=== PATIENT | female | born 1940 | race Caucasian/White ===

== ENCOUNTER → 2017-11-01 | Outpatient (CLI) | payer OTHER ==
[~2017-11-01] MED LIST: AMLO5TAB7 PO; ASPI-482 PO; ATOR40TA59 PO; CHOL10003 PO; EQUATE ARTHRITIS; FENO134C PO; HYDR-2869 PO; LOSA100T7 PO; MAGN400C PO; METO100T7 PO; MONT10TA6 PO; OMEG-113 PO; PANT40TA5 PO; SPIR25TA5 PO
--- NOTE | 2017-11-01 11:46 | KCIC ---
MRI Lumbar Spine without contrast History: Low back pain, radiculopathy, previous surgery 2015 Technique: Multiplanar, multi sequential noncontrast MR imaging was performed of the lumbar spine. Contrast: None Comparison: None Findings: Lumbar vertebral body stature is preserved. There is minimal grade 1 posterior subluxation L2 relative L3 and negligible anterior spondylolisthesis L4-5. Other than Schmorl's nodes, lumbar vertebral body stature is preserved. Conus terminates at L1-2. There is nonspecific edema posterior subcutaneous fat of the lower back. There is mild L5-S1 endplate edema. There is moderate to severe degenerative disc disease greatest at L5-S1 and to a somewhat lesser degree at L4-5 and L2-3, mild to moderate degenerative disc disease at L3-4. L1-L2: This level was not included on the axial images. There is buckling of the ligamentum flavum. Spinal canal and neural foramina are adequate. L2-L3: There is moderate to severe facet degenerative change. There likely has been central posterior decompression. There is disc osteophyte complex and bulge superimposed on the posteriorly subluxed L2 vertebral body margin. There is overall mild narrowing of the far lateral recesses greater on the left. There is probable small synovial cyst in the far right lateral recess about 4 mm in size. There is [id number] narrowing of the left neural foramen, right neural foramen overall adequate. L3-L4: There is mild buckling of the ligamentum flavum and facet hypertrophic change. There is disc osteophyte complex and bulge. There is overall mild spinal stenosis with lateral recess stenosis greater on the left. There is mild right and fairly severe left neural foramina compromise, contact exiting left L3 nerve root. Narrowing of the left neural foramen is due to disc osteophyte complex and facet degenerative change, also tiny synovial cyst at the dorsal superior margin of the neural foramen about 1 to 2 mm in size. L4-L5: There is mild facet degenerative change. There is broad posterior bulge. Spinal canal is overall adequate. There is moderate to severe right and [id number] left neural foramina compromise. L5-S1: There is mild buckling of the ligamentum flavum. There is shallow posterior broad protrusion which is probable partially calcified. This is near the descending S1 nerve roots without significant displacement or significant spinal stenosis. There is moderate to severe right and moderate left neural foramina compromise, contact posterior surfaces of the exiting L5 nerve roots greater on the right. Impression: 1. There is mild lateral recess stenosis greater on the left at L2-3, also mild spinal stenosis with lateral recess stenosis greater on the left at L3-4. Shallow broad posterior protrusion which is probably partially calcified at L5-S1 is near the descending S1 nerve roots without significant spinal stenosis. 2. There is neural foramina compromise as stated, more significant narrowing on the left at L3-4, also moderate to severe narrowing on the right at L4-5 and L5-S1 and to a lesser degree on the left at L4-5 and L5-S1. 3. There is mild abnormal alignment as stated, multilevel facet degenerative change. 4. There is degenerative disc disease greatest at L5-S1, to lesser degree at L2-3 and L4-5. Electronically signed by: Walter Busby MD (11/01/2017 11:43 AM) [facility] [place]
== END | disposition home or self-care (01) ==
LOC: KCIC MRI 10:37
PROVIDERS: ATTEND Physician Assistant Surgical
DX: M51.37 Other intervertebral disc degeneration, lumbosacral region (principal); M48.061 Spinal stenosis, lumbar region without neurogenic claudication; M47.896 Other spondylosis, lumbar region; M25.78 Osteophyte, vertebrae; Z90.711 Acquired absence of uterus with remaining cervical stump
CPT/HCPCS: 72148

== ENCOUNTER → 2017-11-15 | Outpatient (CLI) | payer OTHER ==
--- NOTE | 2017-11-15 15:47 | KCIC ---
EXAM: Dual energy x-ray absorptiometry (DEXA). HISTORY: Postmenopausal female presents for osteoporosis screening. COMPARISON: None. TECHNIQUE: Dual energy x-ray absorptiometry of the lumbar spine and left hip was performed. Calculation of bone mineral density based on standard deviations above or below the expected young adult normal value (T-score) was completed. FINDINGS: The average bone mineral density in the 1st through 4th lumbar vertebrae is 1.332 g/cmxcm, corresponding with a T-score of 2.6. The average total bone mineral density in the left hip is 0.873 g/cmxcm, corresponding with a T-score of -0.6. IMPRESSION: Normal bone mineral density. Note: Definitions established by the World Health Organization: 1. Normal: T-score is -1.0 or above. 2. Osteopenia: T-score is between -1.0 and -2.5 . 3. Osteoporosis: T-score is -2.5 or below. Electronically signed by: Antonina Lou MD (11/15/2017 3:43 PM) [place] [id number]
== END | disposition home or self-care (01) ==
LOC: KCIC DEXA 14:00
PROVIDERS: ATTEND Physician Assistant Surgical
DX: Z13.820 Encounter for screening for osteoporosis (principal); E11.9 Type 2 diabetes mellitus without complications; R29.890 Loss of height; Z78.0 Asymptomatic menopausal state
CPT/HCPCS: 77080

== ENCOUNTER → 2017-11-29 | Outpatient (CLI) | payer OTHER ==
[~2017-11-29] MED LIST changes: +CALC600T4 PO; +CRAN1TAB5 PO; +GABA-586 PO; +LINA5TAB4 PO; +MECL12.52 PO; +POTA20TA82 PO
--- NOTE | 2017-11-30 00:25 | PAIN ---
DATE OF SERVICE: 11/29/2017 DIAGNOSES: Lumbar radiculopathy with lumbar degenerative disk disease and post-lumbar laminectomy syndrome. HISTORY OF PRESENT ILLNESS: The patient is a 77-year-old female, returns for followup status post lumbar epidural steroid injections, last seen in 04/2015. The patient reports she has had decompressive lumbar laminectomy later that year at [facility] and the pain has been increased in her back now for about the past 7-8 months. The patient reports it is in the low back, bilateral lower extremities, worse on the right than the left, radiating in the posterior lateral thigh, lateral anterior thigh, medial knee on the right side as well as in the hips bilaterally and somewhat in the posterior thighs bilaterally. The patient reports it is stabbing, aching, unbearable at times, worse with walking, standing, changing positions, better with sitting, but awakens her from sleep about every 4 hours. The patient states she can usually reposition. Especially, when she is lying on her right side, it is worse. The patient reports no new motor or sensory deficits, no new bowel or bladder incontinence. Describes the pain as a 10 on a scale 10 at its worst, 8 on average, a 5 at its least and is an 8 today. The patient reports stabbing and burning, radiating into the lower extremities, again worse on the right than the left, but better with sitting or lying down. The patient did have a new MRI scan dated 11/01/2017 showing mild lateral recess stenosis greater on the left at L2-L3 and mild lateral recess stenosis greater on the left at L3-L4, shallow broad posterior protrusion, partially calcified L5-S1 to descending S1 nerve roots, neural foraminal compromise more significant on the left at L3-L4, [id number]-[id number] narrowing on the right at L4-L5 and L5-S1, to a lesser degree on the left at L4-L5 and L5-S1. The patient reports no loss of motor function with significant fatigability with the low back pain and especially in the right lower extremity. PHYSICAL EXAMINATION: VITAL SIGNS: Today, the patient's blood pressure is 141/54, pulse 63, respirations are 18, temperature is 98.6 degrees Fahrenheit, height is 5 feet 1 inch, weighs 149 pounds. GENERAL: The patient is awake, alert, oriented, appropriate, very pleasant demeanor. HEENT: Shows normocephalic, atraumatic. Extraocular movements are intact and symmetrical. Oral cavity: Mucous membranes moist and pink. Dentition is intact. NECK: Shows anterior throat supple without palpable lymphadenopathy noted. Swallow reflex is symmetrical. CHEST: Shows normal on inspection. Breath sounds are clear to auscultation bilaterally. HEART: Shows S1, S2 clear. No murmurs auscultated. ABDOMEN: Soft, nontender, nondistended. No palpable organomegaly. There is no rebound or guarding demonstrated. BACK: Shows spine grossly in the midline. Slight exaggerated thoracic kyphosis and minor flattening of lumbar lordotic curvature. Lumbar paraspinous muscle shows symmetrical on inspection. On palpation shows some moderate tenderness diffusely in the low lumbar distribution, but only diffusely without radiation. EXTREMITIES: Lower extremities show deep tendon reflexes 1+ in the patellar and tendo calcaneus tendons are equal. Motor exam is approximately 4 on a scale of 5, but equal and symmetrical with dorsiflexion, extension, quadriceps and hamstring flexion. Peripheral pulses are 1+ posterior tibia. No peripheral edema is noted bilaterally. Straight leg raise noted to be positive on the right at about 35-40 degrees, decreased with knee flexion. Left side is negative. Gaenslen's and Macho's maneuvers are negative bilaterally. Options were discussed with the patient. The patient's old chart was reviewed as is her current medication regimen updated. Current review of systems is updated today as well and we will preauthorize the patient for a lumbar epidural steroid injection. She has done very well with these in the past, now with persistent radiculopathy after her surgery in 2016 in the right L4-L5 dermatomal distribution, again doing physical therapy on her own since her surgery and doing exercise on her own now as well without significant reduction in the pain. We will encourage her to continue with therapies and exercise on her own and we will forego any oral prednisone pack that she is diabetic; however, return once preauthorization is obtained for lumbar epidural steroid injection at the L4-L5 level again with L4-L5 radiculopathy on the right leg. The patient will follow up as scheduled. RAMSES GUEVARA MD DR: PATEL/gustavo JOB#: [id number] / [id number]
== END | disposition home or self-care (01) ==
LOC: PNCL 11:00
PROVIDERS: ATTEND Anesthesiology
DX: M51.16 Intervertebral disc disorders with radiculopathy, lumbar region (principal); M96.1 Postlaminectomy syndrome, not elsewhere classified
CPT/HCPCS: G0463

== ENCOUNTER → 2018-01-31 | Outpatient (CLI) | payer OTHER ==
[~2018-01-31] MED LIST changes: -GABA-586 PO; +GABA300C18 PO; +LINA5TAB PO; -LINA5TAB4 PO; +LOSA100T14 PO; -LOSA100T7 PO
--- NOTE | 2018-01-31 15:10 | PAIN ---
DATE OF SERVICE: 01/31/2018 PROGRESS NOTE FOR PAIN CLINIC DIAGNOSIS: Lumbar radiculopathy with lumbar degenerative disk disease and post-lumbar laminectomy syndrome. HISTORY OF PRESENT ILLNESS: The patient is a 77-year-old female who returns for followup status post lumbar epidural steroid injections, most recently in 2016. The patient did very well with these. We had her preauthorized for initial injection; however, she had some stroke-like symptoms and was delayed in the hospital. It turned out that everything was negative by her report, but her certification had on 01/17. The patient reports still significant pain in the low back, right lower extremity as it was previously, radiating into the posterior lateral thigh, lateral anterior thigh, anterior medial thigh, medial lower leg, worse with standing, walking and changing positions. The patient reports she did very well with her last injection with about 80% improvement for several months after the last injection. The patient reports, however, the pain is returning now, stabbing, aching, unbearable at times, worse with walking, standing and changing positions, better with sitting. Awakens her from sleep about every 4 hours or so, especially if she is lying on her right side. The patient reports she needs repositioning to improve the pain. Reports no new motor or sensory deficits, no new bowel or bladder incontinence. The patient reports the pain is a 10 on a scale 10 at its worst, 8 on average, 5 at its least and is an 8 today. The patient reports it is stabbing, burning and radiating into the lower extremities, again worse on the right than the left, but better with sitting. The patient reports no new motor or sensory deficits, no new bowel or bladder incontinence or other complaints. The patient's MRI scan again shows a lateral recess stenosis greater on the left at L3-L4, shallow broad posterior protrusion, partially calcified L5-S1 to descending S1 nerve roots, neural foraminal compromise more significant on the left at L3-L4, [id number] significant narrowing on the right at L4-L5 and L5-S1. PHYSICAL EXAMINATION: VITAL SIGNS: The patient's blood pressure is 141/71, pulse 91, respirations are 18, temperature 97.6 degrees Fahrenheit, height is 5 feet 1 inch, weight is 142 pounds. GENERAL: The patient is awake, alert, oriented, appropriate, very pleasant demeanor. HEENT: Head shows normocephalic, atraumatic. Extraocular movements are intact and symmetrical. Oral cavity: Mucous membranes are moist and pink. Dentition is intact. NECK: Shows anterior throat supple without palpable lymphadenopathy noted. Swallow reflex is symmetrical. CHEST: Shows normal on inspection. Breath sounds are clear to auscultation bilaterally. HEART: Shows S1, S2 clear. No murmurs auscultated. ABDOMEN: Soft, nontender, nondistended. No palpable organomegaly is noted. No rebound or guarding demonstrated. BACK: Shows spine grossly in the midline. Slight exaggeration of thoracic kyphosis, some minor flattening of lumbar lordotic curvature. Lumbar paraspinous muscle shows symmetrical on inspection, on palpation shows some moderate tenderness diffusely bilaterally, but only diffusely without significant radiation. EXTREMITIES: The patient's lower extremities show deep tendon reflexes at 1+ in the patellar and tendo-calcaneus tendons. Motor exam is strong with 4 on a scale of 5, but equal and symmetrical with dorsiflexion, extension, quadriceps and hamstring flexion bilaterally. The patient's straight leg raise is positive on the right at about 35 degrees, left is negative. Peripheral pulses are 1+ posterior tibia. No peripheral edema bilaterally. Options were discussed with the patient. The patient's old chart was reviewed as her current medication regimen updated. Current review of systems updated today as well. We will preauthorize the patient for a lumbar epidural steroid injection, did very well with the last injection, still with a right-sided L4-L5 dermatomal distribution radiculopathy. The patient will continue with stretching and strengthening exercises that she is already doing, continue walking daily as tolerated and will return to the clinic in approximately 1 week. We will plan on lumbar epidural steroid injection at that time. RAMSES GUEVARA MD DR: PATEL/gustavo JOB#: [id number] / [id number]
== END | disposition home or self-care (01) ==
LOC: PNCL 10:49
PROVIDERS: ATTEND Anesthesiology
DX: M51.16 Intervertebral disc disorders with radiculopathy, lumbar region (principal); M96.1 Postlaminectomy syndrome, not elsewhere classified
CPT/HCPCS: G0463